=== PATIENT | male | born 1995 | race Caucasian/White ===

== ENCOUNTER 2024-08-09 14:59 | Emergency (ER) | payer OTHER, SELFPAY ==
[2024-08-09 15:00] VITALS: BP 128/60; PULSE 69; RESP 18; TEMP 37.3; O2SAT 100
--- NOTE | 2024-08-09 15:02 | ED.EXTPRO ---
HPI - Extremity Problem General Chief complaint: Extremity Problem,Nontraumatic Stated complaint: Both Feet Irritation Time Seen by Provider: 08/09/24 15:02 Source: patient Mode of arrival: ambulatory Limitations: no limitations History of Present Illness HPI Narrative: Patient is a 29-year-old male patient presenting to the clinic today with complaints of bilateral foot pain. 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 States that he was diagnosed with frostbite to his feet back in September. Reports constant pain in his feet with a crater like areas that developed and are painful. Review of Systems Review of Systems: Pertinent positives per HPI. Patient denies any fever, chills, rash, headache, visual changes, dizziness, cough, runny nose, sore throat, shortness of breath, chest pain, palpitations, nausea, vomiting, diarrhea, constipation, abdominal pain, or any urinary issues. PMFSH Comments At the time of my signature, I reviewed and agree with the nursing past medical, surgical, social, and family history. There is no relevant family history pertinent to the patient complaint. Exam Narrative: General: Well-developed, well nourished, in no apparent distress Head: Normocephalic, atraumatic. Cardio: Regular rate and rhythm, s1 and s2 normal, no murmur appreciated. Resp: Clear to auscultation bilaterally, no rhonchi, rales, wheezing or rubs. Musculoskeletal: No deformity, tenderness to palpation to the bottom of the midfoot, white appearing skin with heeling blister/crater like areas, foul smelling, grossly normal range of motion, muscle strength strong and equal, peripheral pulse strong, no edema, no cyanosis, normal gait and station Course Course Emergency Course: Portions of this record may have been created with voice recognition software. Level of Care: Express Care Visit Vital Signs Vital signs: Vital Signs Temperature 37.3 C 08/09/24 15:00 Pulse Rate 69 08/09/24 15:00 Respiratory Rate 18 08/09/24 15:00 Blood Pressure 128/60 08/09/24 15:00 Pulse Oximetry 100 08/09/24 15:00 Oxygen Delivery Room Air 08/09/24 15:00 Temperature 37.3 C 08/09/24 15:00 Pulse Rate 69 08/09/24 15:00 Respiratory Rate 18 08/09/24 15:00 Blood Pressure 128/60 11/13/24 15:00 Pulse Oximetry 100 08/09/24 15:00 Oxygen Delivery Room Air 08/09/24 15:00 Vital signs reviewed MDM - Extremity (Nontraumatic) MDM Narrative Medical decision making narrative: At the time of visit patient is resting comfortably on the exam table. Patient appears to be nontoxic. Plan: Recommend follow-up with substation manager. Will prescribed clindamycin gel ointment to be placed on the feet twice daily for 10 days to cover for pitted kerotylosis. Supportive measures were discussed with the patient and they voiced understanding discharge instructions and agrees to treatment plan. Return precautions reviewed Differential Diagnosis Differential diagnosis: Likely herpes zoster, gout, cellulitis, superficial thrombophlebitis, deep venous thrombosis of upper extremity, lower extremity edema, deep vein thrombosis of lower extremity and other Discharge Plan Discharge Clinical Impression: Bilateral foot pain Patient Disposition: Home, Self-Care Condition: Stable Instructions: Antibiotic Form Additional Instructions: Apply clindamycin to the affected area twice daily until symptoms resolved May take Tylenol/Motrin as needed for pain Keep feet clean and dry as much as possible Wear good fitting shoes Follow-up with podiatry as discussed Prescriptions: New clindamycin phosphate 1 % gel 1 applic topical BID 10 Days Qty: 60 0RF Follow-up/Referrals: Ezekiel Sawant Jr., DPM [Physician] - (Chronic Bilateral foot pain) UNKNOWN,DOCTOR [Non-Staff] - Time of Disposition: 15:19 Quality NIHSS Nursing Documentation ED NIHSS nursing documentation: reviewed/agree
== END 2024-08-09 15:30 | disposition home or self-care (01) ==
PROVIDERS: Emergency Provider Nurse Practitioner Family
DX: M79.672 Pain in left foot (principal); M79.671 Pain in right foot
CPT/HCPCS: 99203; G0463

== ENCOUNTER 2025-03-23 15:11 | Emergency (ER) | payer BC, SELFPAY ==
--- NOTE | 2025-03-23 15:13 | ECG_ITS ---
Test Date: 2025-03-23 15:17:34 Measurements Intervals [place] Rate: 62 P: 62 OR: 127 QRS: 54 QRSD: 97 T: 61 QT: 423 QTc: 430 Interpretive Statements SINUS RHYTHM NORMAL ECG No previous ECG available for comparison Electronically Signed On 03-23-2025 15:39:19 CDT by Eduardo Choe D.O.
[2025-03-23 15:20] VITALS: BP 110/68; PULSE 73; RESP 18; TEMP 36.6; O2SAT 100
[2025-03-23 15:26] VITALS: BP 110/68; PULSE 67; RESP 16; O2SAT 100
[2025-03-23 15:31] VITALS: BP 99/62; PULSE 65; RESP 20; O2SAT 100
--- NOTE | 2025-03-23 16:23 | ED_ITS ---
HPI - General Adult General Chief complaint: Seizure Stated complaint: alcohol, seizures Time Seen by Provider: 03/23/25 15:38 History of Present Illness HPI narrative: This is a 30-year-old male presenting ED with chief complaint of alcohol withdrawal seizures. Patient has history of alcohol and amphetamine abuse. He says he drinks a 6 pack of alcohol a day. He also uses amphetamines frequently. Patient states he stopped drinking 4 days ago and that he had 2 seizures today. When asked what he thinks is a seizure he said that he felt very spacey, and that his heart was racing and he started sweating. He was conscious with the entire event and resolved on its own. No tongue biting or loss of continence. Last use of amphetamine was earlier this morning. Patient does not have nausea or vomiting. He does not have tremors. He does not have auditory or visual hallucinations. He denies anxiety. Exam 2 Narrative: APPEARANCE: Patient is somnolent but arousable, in no visual or palpable tremor, not diaphoretic Head: atraumatic. EYES: EOMI, NOSE: Atraumatic NECK: Trachea midline RESPIRATORY: No increased rate of breathing CTAB CARDIOVASCULAR: RRR, no peripheral edema ABDOMINAL: Non-distended soft nontender MUSCULOSKELETAl: No obvious deformities NEURO: Alert. Moving 4/4 extremities SKIN:: Warm, dry. Normal color PSYCHIATRIC: Normal affect Course Vital Signs Vital signs: Vital Signs Temperature 97.9 F 03/23/25 15:20 Pulse Rate 73 03/23/25 15:20 Respiratory Rate 18 03/23/25 15:20 Blood Pressure 110/68 03/23/25 15:20 Pulse Oximetry 100 03/23/25 15:20 Oxygen Delivery Room Air 03/23/25 15:20 Temperature 97.9 F 03/23/25 15:20 Pulse Rate 65 03/23/25 15:31 Respiratory Rate 20 03/23/25 15:31 Blood Pressure 99/62 L 03/23/25 15:31 Pulse Oximetry 100 03/23/25 15:31 Oxygen Delivery Room Air 03/23/25 15:26 Medical Decision Making [facility] Narrative Medical decision making narrative: -Course: 30-year-old male presenting with concerns about alcohol withdrawal seizures. Patient described what he considers seizure is not a true seizure. Patient was awake, described his heart racing, no tongue biting, no incontinence. He has no evidence of alcohol withdrawal at this time. CIWA 0 Additionally at 4 days since his last drink he is outside of the classic withdrawal. UDS positive for amphetamines and cannabinoids. Patient was monitored for several hours without any change in his condition. He is still resting comfortably in bed. Vital signs stable. Patient is A&O x3. He is able to walk with steady gait. Patient will be discharged with resources for substance abuse. Given return precautions. -DDX includes but is not limited to: Amphetamine abuse, methamphetamine washout syndrome, alcohol abuse -Co-morbidities complicating care: Polysubstance use disorder Vital Signs Vital Signs: Vital Signs Temperature 97.9 F 03/23/25 15:20 Pulse Rate 73 03/23/25 15:20 Respiratory Rate 18 03/23/25 15:20 Blood Pressure 110/68 03/23/25 15:20 Pulse Oximetry 100 03/23/25 15:20 Oxygen Delivery Room Air 03/23/25 15:20 Temperature 97.9 F 03/23/25 15:20 Pulse Rate 65 03/23/25 15:31 Respiratory Rate 20 03/23/25 15:31 Blood Pressure 99/62 L 03/23/25 15:31 Pulse Oximetry 100 03/23/25 15:31 Oxygen Delivery Room Air 03/23/25 15:26 Lab Data 03/23/25 16:18 03/23/25 16:18 Labs: Lab Results 03/23/25 Range/Units 16:18 WBC 5.2 (4.5-10.0) K/mm3 RBC 4.50 L (4.6-6.20) M/mm3 Hgb 13.0 L (14.0-18.0) g/dL Hct 39.7 L (42.0-52.0) % MCV 88.2 (80-100) fl MCH 28.9 (26-34) pg MCHC 32.7 (32-36) g/dl RDW 13.2 (11.5-14.5) % Plt Count 126 L (150-375) k/mm3 MPV 11.4 H (7.4-10.4) fl Immature Gran % (Auto) 0.2 (0-0.5) % Neut % (Auto) 69.0 (45.5-73.1) % Lymph % (Auto) 22.9 (18.3-44.2) % [place] % (Auto) 5.2 (2.6-8.5) % Eos % (Auto) 2.3 (0-4.4) % Baso % (Auto) 0.4 (0.2-1.2) % Lymph # (Auto) 1.20 (0.9-3.2) K/mm3 [place] # (Auto) 0.3 (0.1-0.6) K/mm3 Eos # (Auto) 0.1 (0-0.3) K/mm3 Baso # (Auto) 0.0 (0.0-0.1) K/mm3 Abs Immat Gran (auto) 0.01 (0.00-0.031) K/mm3 Absolute Neuts (auto) 3.6 (1.3-6.7) K/mm3 Absolute Nucleated RBC 0.000 (0.0-0.012) K/mm3 Nucleated RBC % 0.0 (0.0-0.2) % % Immature Plt Fraction 7.6 (0.9-11.2) % Sodium 139 (137-145) mmol/L Potassium 3.0 L (3.4-5.0) mmol/L Chloride 111 H (98-107) mmol/L Carbon Dioxide 22 (22-30) mmol/L Anion Gap 6 (4-12) mmol/L BUN 10 (9-20) mg/dL Creatinine 0.68 L (0.7-1.3) mg/dL Estim Creat Clear Calc 144 ml/min Estimated GFR > 60 (59 - ) Glucose 84 (65-110) mg/dL Calcium 7.8 L (8.4-10.2) mg/dL Total Bilirubin 0.7 (0.2-1.3) mg/dL AST 38 (17-59) U/L ALT 23 (6-50) U/L Alkaline Phosphatase 44 (38-126) U/L Total Protein 5.8 L (6.3-8.2) g/dL Albumin 3.4 L (3.5-5.1) g/dL TSH 0.340 L (0.465-4.680) uIU/mL Urine Color Dark yellow (Yellow) Urine Appearance Clear (Clear) Urine pH 5.5 (5.0-9.0) Ur Specific [place] 1.025 (1.001-1.035) Urine Protein Trace (Negative) mg/dL Urine Glucose (UA) Negative (Negative) mg/dL Urine Ketones Trace H (Negative) mg/dL Ur Blood (Man) Negative (Negative) Urine Nitrate Negative (Negative) Urine Bilirubin Negative (Negative) Urine Urobilinogen 1.0 (<2.0) mg/dL Leukocyte Esterase Rfl Negative (Negative) KAVON/UL Urine RBC 0-2 (0-2) /hpf Urine WBC 0-5 (0-3) /hpf Ur Squamous Epith Cells None seen (Few) /hpf Urine Bacteria None seen /hpf Urine Casts 3-5 Hyaline Casts Present (None) /lpf Urine Opiates Screen Negative (Negative) Urine Methadone Screen Negative (Negative) Ur Barbiturates Screen Negative (Negative) Ur Phencyclidine Scrn Negative (Negative) Ur Amphetamine Screen Positive A (Negative) U Benzodiazepines Scrn Negative (Negative) Urine Cocaine Screen Negative (Negative) U Cannabinoids Screen Positive A (Negative) Ethyl Alcohol < 10 (<10) mg/dL Discharge Plan Discharge Clinical Impression: Amphetamine abuse Patient Disposition: Home Condition: Stable Instructions: Antibiotic Form, Polysubstance Use Disorder (ED) Additional Instructions: You were seen emergency department for possible alcohol withdrawal. Please follow-up with the resources provided for your substance use disorder. Return if you develop signs of alcohol withdrawal such as seizures, tremors, hallucinations. Please refrain from using amphetamines. Patient Language: Luxembourgish Prescriptions: No Action clindamycin phosphate 1 % gel 1 applic topical BID 10 Days Qty: 60 0RF Follow-up/Referrals: UNKNOWN,DOCTOR [Primary Care Provider] -
[2025-03-23 16:30] LABS: Basophils Percent Auto 0.4 % (0.2-1.2); Eosinophils Absolute Auto 0.1 K/mm3 (0-0.3); Eosinophils Percent Auto 2.3 % (0-4.4); Hematocrit 39.7 % (42.0-52.0); Immature Granulocyte Absolute 0.01 K/mm3 (0.00-0.031); Immature Granulocyte Percent A 0.2 % (0-0.5); Immature Platelet Fraction Pct 7.6 % (0.9-11.2); Lymphocytes Percent Auto 22.9 % (18.3-44.2); Mean Corpuscular HGB Conc 32.7 g/dl (32-36); Mean Corpuscular Hemoglobin 28.9 pg (26-34); Mean Corpuscular Volume 88.2 fl (80-100); Mean Platelet Volume 11.4 fl (7.4-10.4); Monocytes Absolute Auto 0.3 K/mm3 (0.1-0.6); Monocytes Percent Auto 5.2 % (2.6-8.5); Neutrophils Absolute Auto 3.6 K/mm3 (1.3-6.7); Platelet Count Result 126 k/mm3 (150-375); Red Cell Distribution Width 13.2 % (11.5-14.5); White Blood Count 5.2 K/mm3 (4.5-10.0)
[2025-03-23] MEDS: LACTATED RINGERS 1,000 ML 999 ML IV CONT (16:33)
[2025-03-23 16:39] LABS: Alanine Aminotransferase 23 U/L (6-50); Albumin Level 3.4 g/dL (3.5-5.1); Alkaline Phosphatase 44 U/L (38-126); Anion Gap 6 mmol/L (4-12); Aspartate Amino Transferase 38 U/L (17-59); Bilirubin,Total 0.7 mg/dL (0.2-1.3); Blood Urea Nitrogen 10 mg/dL (9-20); Calcium 7.8 mg/dL (8.4-10.2); Carbon Dioxide 22 mmol/L (22-30); Chloride 111 mmol/L (98-107); Estimated CRCL calculation 144 ml/min; Estimated Glomerular Filt Rate > 60; Glucose 84 mg/dL (65-110); Sodium 139 mmol/L (137-145); Total Protein 5.8 g/dL (6.3-8.2)
[2025-03-23 16:40] LABS: Ethanol < 10 mg/dL (<10)
[2025-03-23 16:53] LABS: Barbiturate Screen Urine Negative (Negative); Benzodiazepines Screen Urine Negative (Negative); Cannabinoid Screen Urine Positive (Negative); Cocaine Screen Urine Negative (Negative); Methadone Screen Urine Negative (Negative); Opiate Screen Urine Negative (Negative); Phencyclidine Screen Urine Negative (Negative)
[2025-03-23 16:54] LABS: Amphetamine Screen Urine Positive (Negative)
[2025-03-23 17:02] LABS: Add Urine Microscopic? YES; Appearance Urine Clear (Clear); Bacteria Urine None Seen /hpf; Bilirubin Urine Negative (Negative); Blood Urine Negative (Negative); Color Urine Dark Yellow (Yellow); Glucose Urine UA Negative (Negative); Hyaline Casts Urine Present /lpf; Ketones Urine Trace mg/dL (Negative); Leukocyte Esterase Ur Negative LEU/UL (Negative); Nitrate Urine Negative (Negative); Protein Urine Trace mg/dL (Negative); RBC Urine 0-2 /hpf (0-2); Specific Grav Ur 1.025 (1.001-1.035); Squamous Epithelial Cell Urine None Seen /hpf (Few); WBC Urine 0-5 /hpf (0-3); pH Urine 5.5 (5.0-9.0)
[2025-03-23] MEDS: POTASSIUM CHLORIDE 20 MEQ PACKET (FOR LIQUID) 40 MEQ PO (17:13)
[2025-03-23 18:16] VITALS: BP 132/78; PULSE 82; RESP 20; TEMP 37; O2SAT 100
== END 2025-03-23 18:18 | disposition home or self-care (01) ==
PROVIDERS: Emergency Provider Emergency Medicine
DX: F15.10 Other stimulant abuse, uncomplicated (principal); F10.10 Alcohol abuse, uncomplicated; Y90.0 Blood alcohol level of less than 20 mg/100 ml
CPT/HCPCS: 36415; 80053; 80307; 81001; 82077; 84443; 85025; 85055; 93005; 96360; 96361; 99283; A9270; J7120

== ENCOUNTER 2025-03-25 13:34 | Emergency (ER) | payer BC, SELFPAY ==
[2025-03-25 13:38] VITALS: BP 111/82; PULSE 77; RESP 17; TEMP 36.4; O2SAT 98
[2025-03-25 14:05] LABS: Basophils Percent Auto 0.6 % (0.2-1.2); Eosinophils Absolute Auto 0.1 K/mm3 (0-0.3); Eosinophils Percent Auto 1.6 % (0-4.4); Hemoglobin 12.6 g/dL (14.0-18.0); Immature Granulocyte Absolute 0.01 K/mm3 (0.00-0.031); Immature Granulocyte Percent A 0.2 % (0-0.5); Lymphocytes Absolute Auto 1.89 K/mm3 (0.9-3.2); Lymphocytes Percent Auto 29.8 % (18.3-44.2); Mean Corpuscular HGB Conc 32.3 g/dl (32-36); Mean Corpuscular Volume 89.7 fl (80-100); Mean Platelet Volume 11.1 fl (7.4-10.4); Monocytes Absolute Auto 0.5 K/mm3 (0.1-0.6); Monocytes Percent Auto 7.2 % (2.6-8.5); Neutrophils Absolute Auto 3.9 K/mm3 (1.3-6.7); Neutrophils Percent Auto 60.6 % (45.5-73.1); Platelet Count Result 173 k/mm3 (150-375); Red Blood Count 4.35 M/mm3 (4.6-6.20); Red Cell Distribution Width 13.3 % (11.5-14.5); White Blood Count 6.4 K/mm3 (4.5-10.0)
[2025-03-25 14:14] LABS: Add Urine Microscopic? YES; Appearance Urine Cloudy (Clear); Bacteria Urine None Seen /hpf; Bilirubin Urine Negative (Negative); Blood Urine Negative (Negative); Color Urine Yellow (Yellow); Glucose Urine UA Negative (Negative); Ketones Urine Negative (Negative); Leukocyte Esterase Ur Negative LEU/UL (Negative); Nitrate Urine Negative (Negative); Non Pathogenic Casts 0-2; Protein Urine Negative (Negative); RBC Urine 0-2 /hpf (0-2); Specific Grav Ur 1.011 (1.001-1.035); Squamous Epithelial Cell Urine None Seen /hpf (Few); WBC Urine 0-5 /hpf (0-3); pH Urine 7.5 (5.0-9.0)
[2025-03-25 14:20] LABS: Acetaminophen < 10 ug/mL (10-30); Alanine Aminotransferase 24 U/L (6-50); Albumin Level 4.3 g/dL (3.5-5.1); Alkaline Phosphatase 40 U/L (38-126); Anion Gap 7 mmol/L (4-12); Aspartate Amino Transferase 29 U/L (17-59); Bilirubin,Total 0.3 mg/dL (0.2-1.3); Blood Urea Nitrogen 14 mg/dL (9-20); Carbon Dioxide 25 mmol/L (22-30); Chloride 107 mmol/L (98-107); Estimated CRCL calculation 152 ml/min; Estimated Glomerular Filt Rate > 60; Ethanol < 10 mg/dL (<10); Glucose 113 mg/dL (65-110); Salicylate < 1.0 mg/dL (2-20); Sodium 139 mmol/L (137-145); Total Protein 6.9 g/dL (6.3-8.2)
[2025-03-25 14:24] LABS: Amphetamine Screen Urine Negative (Negative); Barbiturate Screen Urine Negative (Negative); Benzodiazepines Screen Urine Negative (Negative); Cannabinoid Screen Urine Positive (Negative); Cocaine Screen Urine Negative (Negative); Methadone Screen Urine Negative (Negative); Opiate Screen Urine Negative (Negative); Phencyclidine Screen Urine Negative (Negative)
--- NOTE | 2025-03-25 14:34 | ED_ITS ---
HPI - Psych General Chief Complaint: Psychiatric Symptoms Stated Complaint: psych Time Seen by Provider: 03/25/25 13:35 History of Present Illness HPI Narrative: 30-year-old male with history of polysubstance abuse presenting to the emergency department for suicidal ideation. Patient was evaluated by the psychiatric crisis team already and was sent here via ambulance to get placed after medical clearance. Patient himself on initial encounter has no somatic complaints and denies any symptoms the sign aside from suicidal ideation. He is requesting psychiatric placement and was comfortable with going to a facility for hospitalization voluntarily. He denies any active plan for suicide. Endorses some meth and alcohol use but denies any complaints at this time otherwise. Resting comfortably in his bed. Related Data Allergies Allergy/AdvReac Type Severity Reaction Status Date / Time No Known Allergies Allergy Verified 03/25/25 13:49 Review of Systems 2 Review of Systems: As reviewed above in HPI PMFSH Social History Social History Substance use type: methamphetamine Exam 2 Narrative: GENERAL: [Well-appearing, well-nourished, and in no acute distress.] HEAD: [Normocephalic, atraumatic.] EYES: [PERRLA and EOMI.] ENT: Nares clear, no rhinorrhea or epistaxis. Mucous membranes moist. NECK: Supple. CHEST: [Clear to auscultation. No respiratory distress.] HEART: [Regular rate and rhythm]. No murmur heard. [Normal peripheral pulses.] ABDOMEN: [Soft, nondistended], [nontender], [No rigidity or guarding] EXTREMITIES: Normal range of motion. [No edema.] SKIN: Warm, dry, no rash. NEURO: [No focal deficits]. Alert and oriented [x3.] PSYCH: Suicidal ideation but normal affect and cooperative and calm Course Course Emergency Course: Patient was accepted at [facility] under Dr. Epperson. Transfer forms were filled out and signed and patient will be sent over via BLS ambulance. Vital Signs Vital signs: Vital Signs Temperature 36.4 C 03/25/25 13:38 Pulse Rate 77 03/25/25 13:38 Respiratory Rate 17 03/25/25 13:38 Blood Pressure 111/82 03/25/25 13:38 Pulse Oximetry 98 03/25/25 13:38 Oxygen Delivery Room Air 03/25/25 13:38 Temperature 36.4 C 03/25/25 13:38 Pulse Rate 77 03/25/25 13:38 Respiratory Rate 17 03/25/25 13:38 Blood Pressure 111/82 03/25/25 13:38 Pulse Oximetry 98 03/25/25 13:38 Oxygen Delivery Room Air 03/25/25 13:38 MDM - Psych MDM Narrative Medical decision making narrative: 30-year-old male presenting to the emergency department for psychiatric assistance. He states these had suicidal thoughts for last 24 hours and sought help with a psychiatric crisis team who has evaluated him and agreeable for voluntary placement but he was sent to the ER for medical clearance at this time. Endorses polysubstance abuse with recent alcohol and meth use but clinically sober at this time. Not any acute distress but does endorse suicidal thoughts. Normal vital signs with no somatic complaints. Psychiatric clearance laboratory studies were ordered and he will be medically cleared for placement since he is already been evaluated by psych. Laboratory studies are reassuring without any leukocytosis or significant anemia. Normal platelet count. Normal electrolytes, normal renal function, normal glucose, normal LFTs. Urinalysis without infection. UDS positive for cannabinoids. Negative alcohol, salicylate and Tylenol level. Patient is medically cleared for psychiatric placement. Patient resting comfortably in his room and has no somatic complaints. Medical Records Attestation: I reviewed the patient's medical records. Lab Data Attestation: I reviewed the patient's lab results. 03/25/25 13:50 03/25/25 13:50 Labs: Lab Results 03/25/25 03/25/25 Range/Units 13:50 13:59 WBC 6.4 (4.5-10.0) K/mm3 RBC 4.35 L (4.6-6.20) M/mm3 Hgb 12.6 L (14.0-18.0) g/dL Hct 39.0 L (42.0-52.0) % MCV 89.7 (80-100) fl MCH 29.0 (26-34) pg MCHC 32.3 (32-36) g/dl RDW 13.3 (11.5-14.5) % Plt Count 173 (150-375) k/mm3 MPV 11.1 H (7.4-10.4) fl Immature Gran % (Auto) 0.2 (0-0.5) % Neut % (Auto) 60.6 (45.5-73.1) % Lymph % (Auto) 29.8 (18.3-44.2) % [place] % (Auto) 7.2 (2.6-8.5) % Eos % (Auto) 1.6 (0-4.4) % Baso % (Auto) 0.6 (0.2-1.2) % Lymph # (Auto) 1.89 (0.9-3.2) K/mm3 [place] # (Auto) 0.5 (0.1-0.6) K/mm3 Eos # (Auto) 0.1 (0-0.3) K/mm3 Baso # (Auto) 0.0 (0.0-0.1) K/mm3 Abs Immat Gran (auto) 0.01 (0.00-0.031) K/mm3 Absolute Neuts (auto) 3.9 (1.3-6.7) K/mm3 Absolute Nucleated RBC 0.000 (0.0-0.012) K/mm3 Nucleated RBC % 0.0 (0.0-0.2) % Sodium 139 (137-145) mmol/L Potassium 4.0 (3.4-5.0) mmol/L Chloride 107 (98-107) mmol/L Carbon Dioxide 25 (22-30) mmol/L Anion Gap 7 (4-12) mmol/L BUN 14 (9-20) mg/dL Creatinine 0.67 L (0.7-1.3) mg/dL Estim Creat Clear Calc 152 ml/min Estimated GFR > 60 (59 - ) Glucose 113 H (65-110) mg/dL Calcium 9.0 (8.4-10.2) mg/dL Total Bilirubin 0.3 (0.2-1.3) mg/dL AST 29 (17-59) U/L ALT 24 (6-50) U/L Alkaline Phosphatase 40 (38-126) U/L Total Protein 6.9 (6.3-8.2) g/dL Albumin 4.3 (3.5-5.1) g/dL TSH (Reflex) 0.651 (0.465-4.68) uIU/mL Urine Color Yellow (Yellow) Urine Appearance Cloudy H (Clear) Urine pH 7.5 (5.0-9.0) Ur Specific [place] 1.011 (1.001-1.035) Urine Protein Negative (Negative) mg/dL Urine Glucose (UA) Negative (Negative) mg/dL Urine Ketones Negative (Negative) mg/dL Ur Blood (Man) Negative (Negative) Urine Nitrate Negative (Negative) Urine Bilirubin Negative (Negative) Urine Urobilinogen 1.0 (<2.0) mg/dL Leukocyte Esterase Rfl Negative (Negative) KAVON/UL Urine RBC 0-2 (0-2) /hpf Urine WBC 0-5 (0-3) /hpf Ur Squamous Epith Cells None seen (Few) /hpf Urine Bacteria None seen /hpf Urine Casts 0-2 Salicylates < 1.0 L (2-20) mg/dL Urine Opiates Screen Negative (Negative) Urine Methadone Screen Negative (Negative) Acetaminophen < 10 L (10-30) ug/mL Ur Barbiturates Screen Negative (Negative) Ur Phencyclidine Scrn Negative (Negative) Ur Amphetamine Screen Negative (Negative) U Benzodiazepines Scrn Negative (Negative) Urine Cocaine Screen Negative (Negative) U Cannabinoids Screen Positive A (Negative) Ethyl Alcohol < 10 (<10) mg/dL Influenza A (RT-PCR) Negative (Negative) Influenza B (RT-PCR) Negative (Negative) RSV (RT-PCR) Negative (Negative) SARS-CoV-2 RNA (RT-PCR) Negative (Negative) Discharge Plan Discharge Clinical Impression: Suicide ideation, Polysubstance abuse Patient Disposition: Psychiatric Hosp Condition: Stable Patient Language: [place] Prescriptions: No Action clindamycin phosphate 1 % gel 1 applic topical BID 10 Days Qty: 60 0RF Follow-up/Referrals: UNKNOWN,DOCTOR [Primary Care Provider] -
[2025-03-25 14:43] LABS: Influenza A QL RT-PCR Negative (Negative); Influenza B QL RT-PCR Negative (Negative); RSV RNA, RT-PCR. Negative (Negative); SARS-CoV-2 RNA PCR Negative (Negative)
[2025-03-25 14:51] LABS: Thyroid Stimulating Hormone Reflex 0.651 uIU/mL (0.465-4.68)
== END 2025-03-25 18:43 ==
PROVIDERS: Emergency Provider Student in an Organized Health Care Education/Training Program
DX: R45.851 Suicidal ideations (principal); F19.10 Other psychoactive substance abuse, uncomplicated; Z20.822 Contact with and (suspected) exposure to COVID-19
CPT/HCPCS: 36415; 80053; 80143; 80179; 80307; 81001; 82077; 84443; 85025; 87637; 99284; 99285